=== PATIENT | male | born 1975 | race Caucasian/White ===

== ENCOUNTER → 2024-11-01 | Outpatient (CLI) | payer MEDICAID, SELFPAY ==
--- NOTE | 2024-11-01 12:05 | RAD_ITS ---
PROCEDURE: LUMBAR SPINE 2 OR 3 VIEWS ([facility]), 11/01/2024 REASON FOR EXAM: DDD TECHNIQUE: AP, lateral, and lateral spot views of the lumbosacral junction were obtained. COMPARISON: None FINDINGS: Fracture/dislocation: None visible. Vertebral body heights: Chronic appearing anterior wedging at T12 greater than T11, otherwise vertebral body heights are preserved. Alignment: Trace likely degenerative retrolisthesis at T12-L1. Disc spaces: Minimal loss of disc height. Moderate loss of disc height at T12- L1 with endplate sclerosis and small osteophytes. Remainder of the visualized lower thoracic spine better evaluated on dedicated thoracic spinal radiographs. Facets: Suspect mild facet arthropathy at L4-S1. Soft tissues: Unremarkable. Foreign bodies: None visible. Bone mineralization: Grossly unremarkable. Other: Right upper quadrant surgical clips. RAD/Lumbar Spine 2 or 3 Views IMPRESSION: 1. No visible acute displaced fracture. 2. Moderate degenerative disc disease at T12-L1 and lower lumbar facet arthropa thy as detailed. 3. Additional description as above. Reading Location: [id number]
--- NOTE | 2024-11-01 12:05 | RAD_ITS ---
PROCEDURE: CERV SPINE 2 OR 3 VIEWS ([facility]), 11/01/2024 REASON FOR EXAM: DDD TECHNIQUE: AP, lateral, and odontoid views of the cervical spine were obtained. COMPARISON: None FINDINGS: Note that the lower cervical spine at/below the level of the C6-C7 disc space is obscured on the lateral view due to superimposition of the shoulders. Fracture/dislocation: None visible. Vertebral body heights: Preserved. Alignment: Straightening of the normal cervical lordosis may be positional or related to degenerative pain/muscle spasm. Trace thoracolumbar levoscoliosis may be positional. Disc spaces: Minimal loss of disc height at C5-C6 with tiny osteophytes and minimal endplate sclerosis. Facets: Unremarkable. Soft tissues: Unremarkable. Foreign bodies: None visible. Bone mineralization: Grossly unremarkable. RAD/Cerv Spine 2 or 3 Views IMPRESSION: 1. No visible acute abnormality. 2. Minimal radiographically evident degenerative disc disease at C6-7 3. Additional description as above. Reading Location: [id number]
--- NOTE | 2024-11-01 12:05 | RAD_ITS ---
PROCEDURE: THORACIC SPINE 2 VIEWS ([facility]), 11/01/2024 REASON FOR EXAM: DDD TECHNIQUE: AP, lateral, and swimmer's views of the thoracic spine were obtained. COMPARISON: None FINDINGS: Limited evaluation of the upper thoracic spine on the lateral view due to superimposition of the shoulders. Fracture/dislocation: None visible. Vertebral body heights: Chronic vertebral body height loss at T12 greater than T11, better seen on separately dictated dedicated lumbar spinal radiographs. Otherwise vertebral body heights are grossly preserved. Alignment: Trace S shaped scoliosis. Disc spaces: Disc height loss at T12-L1 better evaluated on dedicated lumbar spinal radiographs, otherwise multilevel disc height loss is minimal and greatest in the upper to midthoracic spine. Facets: Grossly unremarkable. Soft tissues: Unremarkable. Foreign bodies: None visible. Bone mineralization: Grossly unremarkable. RAD/Thoracic Spine 2 Views IMPRESSION: 1. No visible acute displaced fracture. 2. Degenerative disc disease at T12-L1, better depicted on dedicated lumbar spi nal radiographs. Otherwise minimal radiographically appreciable upper thoracic degenerative changes. 3. Additional description as above. Reading Location: [id number]
== END | disposition home or self-care (01) ==
LOC: RAD 11:58
PROVIDERS: PCP Physician Assistant; Referring Provider Anesthesiology Pain Medicine; Visit Provider Anesthesiology Pain Medicine
DX: M51.34 Other intervertebral disc degeneration, thoracic region (principal); M51.369 Other intervertebral disc degeneration, lumbar region without mention of lumbar back pain or lower extremity pain; M53.3 Sacrococcygeal disorders, not elsewhere classified
CPT/HCPCS: 72040; 72070; 72100

== ENCOUNTER 2024-11-22 15:00 | Outpatient (RCR) | payer MEDICAID, SELFPAY ==
--- NOTE | 2024-11-11 19:03 | HP.PTEVAL ---
Patient's Visit Information Visit Information Visit Information: KAREL RIGGINS Sr. is a 49 year old M referred to Physical Therapy by Dr. Jose Carlos Trent MD with a diagnosis of Back pain. Date of Evaluation: 11/11/24 Physical Therapist: Lopez Murray, DPT, OCS, CSCS Visit Plan Frequency: 2-3x /Week Duration: 4-6 Weeks Plan: 2-3x/week for 4-6 weeks for pool therapy to work on Lumbar ROM, HS and quad stretching, core strength adn general ex posture adn LE.. Progress to HEP or I pool program. Pt will get a week of therapy in after his injections next week, and prior to going to [place] so we can try and get him some pool x to do while gone. MRI if no improvement according to patient Subjective Subjective: Dr. Trent sent for LBP and posterior hips. Used to see pain management adn get vicodin and tramadol in [place]. has been told he need surgery on discs from ortho pedic doctor but 50-50 chance of helping. Hurt his back at 18, carrying heavy objects and getting somewhat crushed. Saw chiro-ractor for 5-6 years, smoked dope and drank beer and continued being a kid. Tripped at age 25 and got back inflammed. Had Lupus and 2 old fractures in his back at that time. 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 has had meds, rehab and pain management over the years. Was managing it with meds. Got cut off of those with doctor who was not licensed. Just dealt with pain for years. Eventually went to pain management in [place] and given meds and it helped. He moved in 2014. Has been dealing with it with tramadol for a lot of years. Saw [facility] referred from a friend, will get injections next week. Spine doctor in [place] said he needed surgery. Pain is LB and down posterior legs to knees . Wrose moving and gtting out of chair. Worse afteer work much of time. At home gets in spot on bed and gets comfortable. Painful to dress himself, Takes a long time to get ready for dressing, showering etc. Makes him grumpy and mean. No exercises. Sleep is no good. Can't gt comfortable. Pain LBP: Pain Intensity (Out of 10): 6 Pain Intensity Range: 4 and 9 Comment: constant Objective Objective: R antalgia from knee pain sustained today fighting the wind. Stiff pelvis and LB with ambulation but I, transfers I but slow to stand and labored. Good balance Tender in Lumbar paraspinals r >L. PA pressure painful Lumbar ROM max limited in ext and painful R LB, flexion Max limited and painful, B SB min painful. reflexes 2/3 patella and achills Sensation LE WNL to gross light touch B. strength core 3 abs and back ext hips 3/5 flexion with pain and instability, abd and ext 3+, knees flexion adn ext 4-, df 4- B. No myotomal abnormalities seen. -slump and SLR. Balance/Special Test Scores Oswestry Low Back Score: 21 Goals Goal 1:: stand from chair without hesitation or pain Goal Time Frame: 4-6 Weeks Goal 2:: I appropriate HEP to limit future problems Goal Time Frame: 4-6 Weeks Goal 3:: Pain in LB 2/10 and 50% better Goal Time Frame: 4-6 Weeks Goal 4:: oswestry 5 or better Goal Time Frame: 4-6 Weeks Rehabilitation Potential Physical Therapy Diagnosis: lacks movement in spine and has weakness and pain limits funciton. Rehabilitation Potential: Good Anticipated Interventions Patient/Client Instruction: Educate patient on: Condition and Plan of Care For the Purpose of:: To decrease pain, To decrease swelling/inflammation, To increase ROM, To improve nutrient delivery to tissue, To improve muscle performance and motor function, To increase tolerance to activity/condition/position, To improve ability of physical actions for home/community/work/leisure and To improve gait and locomotor functions Therapeutic Exercise to Include: Strength training, Postural training, Flexibilty training, Relaxation training, In an aquatic setting, Passive ROM, Active ROM and Dynamic Lumbar Stabilization For the Purpose of:: To decrease pain, To increase ROM, To improve nutrient delivery to tissue, To improve muscle performance and motor function, To improve gait and locomotor functions and To increase flexibility/ROM Text: Thank you for the opportunity to evaluate your patient. For Medicare and Medicare HMO plans, please review the plan of care and approve it. It will need to be FAXED BACK to us at [phone] for Medicare purposes. For Medicare only, by signing this I certify the plan of care. Please let me know if there are questions or concerns regarding this plan of care. Physician Signature: Date:
--- NOTE | 2025-02-28 12:47 | HP.PTDCNRP_ITS ---
Patient Information Patient Information: KAREL RIGGINS was seen in my office for initial evaluation on 11/11/24. The following Plan of Care was established for this patient: POC Established Initial Frequency: 2-3x /Week Initial Duration: 4-6 Weeks Anticipated Interventions Patient/Client Instruction: Educate patient on: Condition and Plan of Care For the Purpose of:: To decrease pain, To decrease swelling/inflammation, To increase ROM, To improve nutrient delivery to tissue, To improve muscle performance and motor function, To increase tolerance to activity/c ondition/position, To improve ability of physical actions for home/community/work/leisure and To improve gait and locomotor functions Therapeutic Exercise to Include: Strength training, Postural training, Flexibilty training, Relaxation training, In an aquatic setting, Passive ROM, Active ROM and Dynamic Lumbar Stabilization For the Purpose of:: To decrease pain, To increase ROM, To improve nutrient delivery to tissue, To improve muscle performance and motor function, To improve gait and locomotor functions and To increase flexibility/ROM Last Seen Last Seen: This patient was last seen in our office 11/22/24. Pertinent comments regarding their Physical therapy will appear below: Pt seen 2 visits of POC including one session in pool but cancelled all remaining sessions for various reasons. At this point, it has been over 3 months and I will discontinue from my care due to nonattendance. At this point I will be discontinuing this patient from physical therapy. I would be happy to see this patient again in the future if found appropriate by the physician. Thank you! Lopez Murray, DPT, OCS, CSCS Balance/Gait/Functional tests Balance/Special Test Scores Oswestry Low Back Score: 21
== END 2024-11-22 19:00 | disposition home or self-care (01) ==
LOC: PT 15:00
PROVIDERS: PCP Physician Assistant; Visit Provider Anesthesiology Pain Medicine
DX: M54.9 Dorsalgia, unspecified (principal)
CPT/HCPCS: 97113; 97162

== ENCOUNTER → 2024-12-14 | Outpatient (CLI) | payer SELFPAY ==
[2024-12-14 18:33] LABS: Amphetamine Urine NEGATIVE (<1000 ng/mL); Barbiturate Urine NEGATIVE (< 200 ng/mL); Benzodiazepine Urine PRESUMPTIVE POSITIVE (< 200 ng/mL); Buprenorphine Urine NEGATIVE (< 200 ng/mL); Cocaine Urine NEGATIVE (< 300 ng/mL); Fentanyl, Urine NEGATIVE; Methadone Urine NEGATIVE (< 300 ng/mL); Opiates Urine NEGATIVE (< 300 ng/mL); Oxycodone, Urine NEGATIVE (< 100 ng/mL); PCP Urine NEGATIVE (< 25 ng/mL); THC Urine NEGATIVE (< 50 ng/mL)
== END | disposition home or self-care (01) ==
PROVIDERS: PCP Physician Assistant; Referring Provider Anesthesiology Pain Medicine; Visit Provider Anesthesiology Pain Medicine
DX: F11.20 Opioid dependence, uncomplicated (principal)
CPT/HCPCS: 80307